=== PATIENT | female | born 1955 ===

== ENCOUNTER → 2025-01-30 | Outpatient (REF) | payer MEDICARE, OTHER ==
[2025-02-02 15:42] LABS: LYME TOTAL ANTIBODY CIA 3.39 Index (<=0.90)
[2025-02-02 19:16] LABS: LYME AB IGG BY CIA 9.37 Index (<=0.90); LYME AB IGM BY CIA 1.03 Index (<=0.90)
== END ==
LOC: M LABWUC 13:03
PROVIDERS: ATTEND Student in an Organized Health Care Education/Training Program
DX: R21 Rash and other nonspecific skin eruption (principal)